=== PATIENT | female | born 2005 | race Caucasian/White ===

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

== ENCOUNTER 2023-04-19 10:15 | Emergency (ER) | payer OTHER, SELFPAY ==
[2023-04-19 11:06] VITALS: BP 109/69; PULSE 85; RESP 16; TEMP 36.3; O2SAT 99; BMI 24.0
--- NOTE | 2023-04-19 13:25 | ED_ITS ---
HPI - Nausea/Vomiting/Diarrhea General Date Seen: 04/19/23 Chief complaint: Nausea/Vomiting Stated complaint: nausea Time Seen by Provider: 04/19/23 12:27 Source: patient Mode of arrival: ambulatory Limitations: no limitations History of Present Illness HPI Narrative: Patient is an 16-year-old female with no pertinent medical problems presenting to the emergency department for nausea, vomiting, diarrhea. She states symptoms have been going on for the past 2 days. She recalls to [facility] says she has been around sick contacts was not know what any of them have had. She states she has vomited sometimes has lost count. Has not ate or drink anything since yesterday and says is only slight amount yesterday. Denies fevers or chills. States she has been having watery diarrhea the past 2 days also. No dysuria or polyuria. States he has a crackling sensation in her umbilicus region that does not radiate. She had a cholecystectomy but still has her appendix. Denies chest pain, shortness of breath, lightheadedness, dizziness. She does feel fatigued. She has an implantable IUD. Related Data Home Medications Medication Instructions Recorded Confirmed Maria Guadalupe 1 tab PO DAILY 05/10/22 04/19/23 Cymbalta 80 mg PO DAILY 05/10/22 04/19/23 Strattera 80 mg PO DAILY 05/10/22 04/19/23 Allergies Allergy/AdvReac Type Severity Reaction Status Date / Time Penicillins AdvReac felt sleepy Verified 04/19/23 11:05 Review of Systems Status of ROS: Reports: 10 or more systems reviewed and unremarkable except as noted in History and below [facility] Social History Smoking Status: Never smoker How often do you have a drink containing alcohol: 2-4 times a month AUDIT-C Alcohol total score: 2 Non-prescribed substance use: marijuana (any form) Exam Narrative: Exam Narrative: Const: Well-nourished, Well-developed, in mild distress Eyes: PERRL, no conjunctival injection, and symmetrical lids HENT: Atraumatic external nose and ears. Moist mucous membranes. Neck: Symmetric, trachea midline, No thyromegaly. CVS: RRR, No murmurs or gallops. Peripheral pulses 2+ and equal in all extremities RESP: Unlabored respiratory effort. Clear to auscultation bilaterally. GI: Mild umbilical tenderness, Nondistended, No rebound or guarding. MSK:Extremities w/o deformity, Normal Active ROM Skin: Warm, Dry. No rashes or lesions. Neuro: Normal Muscle tone, No focal neurological deficits. Psych: Awake, Alert, & Oriented x3. Appropriate mood and affect. Const: Vital Signs, click to edit/add: Vital Signs - 24 hr 04/19/23 11:06 Temperature 97.4 F L Pulse Rate [Pulse Oximeter] 85 Respiratory Rate 16 Blood Pressure [Ri ght Upper Arm] 109/69 Pulse Oximetry 99 Oxygen Delivery Me thod Room Air Course Vital Signs Vital signs: Initial Vital Signs Temperature 97.4 F L 04/19/23 11:06 Temperature Source Temporal Artery Scan 04/19/23 11:06 Pulse Rate 85 04/19/23 11:06 Respiratory Rate 16 04/19/23 11:06 Blood Pressure 109/69 04/19/23 11:06 Blood Pressure Mean 82 04/19/23 11:06 Pulse Oximetry 99 04/19/23 11:06 Oxygen Delivery Method Room Air 04/19/23 11:06 Vital Signs Temperature 97.4 F L 04/19/23 11:06 Pulse Rate 85 04/19/23 11:06 Respiratory Rate 16 04/19/23 11:06 Blood Pressure 109/69 04/19/23 11:06 Pulse Oximetry 99 04/19/23 11:06 Oxygen Delivery Method Room Air 04/19/23 11:06 Temperature 97.4 F L 04/19/23 11:06 Pulse Rate 85 04/19/23 11:06 Respiratory Rate 16 04/19/23 11:06 Blood Pressure 109/69 04/19/23 11:06 Pulse Oximetry 99 04/19/23 11:06 Oxygen Delivery Method Room Air 04/19/23 11:06 MDM - Nausea/Vomiting/Diarrhea MDM Narrative Medical decision making narrative: Patient is 17 year female 2 days of nausea, vomiting, diarrhea. States she has been around sick contacts was not done within once been diagnosed with. Says she has vomited lot and has had watery diarrhea. Denies fevers. Does not have a gallbladder versus appendix. Is having some cramping sensation in her umbilical region. Right now appendicitis is possible as the pain can start in the umbilical region but has been 2 days and has not radiated. We will order lab work on her a CBC, CMP, lipase, urinalysis, urine test, COVID/flu. BMP returned showing a white count of 4.2. Her symptoms resolved with the Toradol and Zofran. At this time I believe appendicitis is unlikely and not believe is necessary to put her to a CT scan. CMP and lipase are also within normal limits unlikely to be pancreatitis or liver disease. Most likely symptoms are related to a viral gastroenteritis. She was discharged home with Zofran. She is agreeable to this plan Lab Data Labs: Lab Results 04/19/23 04/19/23 Range/Units 13:37 13:37 WBC 4.21 L (4.50-11.00) K/uL RBC 5.03 (4.00-5.20) m/uL Hgb 15.1 (12.0-16.0) gm/dL Hct 43.6 (33.0-51.0) % MCV 87 (80-100) fL MCH 30 (26-34) pg MCHC 35 (32-36) gm/dL RDW Coeff of Carlos Alberto 11.6 (11.5-15.5) % Plt Count 291 (140-440) K/uL Neut % (Auto) 47.5 (42.0-72.0) % Lymph % (Auto) 38.7 (20-44) % Mason % (Auto) 10.7 (0.0-11.0) % Eos % (Auto) 1.4 (0.0-7.0) % Baso % (Auto) 1.0 (0.0-3.0) % Neut # (Auto) 2.00 (1.7-7.0) K/uL Lymph # (Auto) 1.60 (0.90-2.90) K/uL Mason # (Auto) 0.50 (0.00-0.90) K/UL Eos # (Auto) 0.10 (0.00-0.50) K/uL Baso # (Auto) 0.00 (0.00-0.30) K/uL Abs Immat Gran (auto) 0.00 (0.00-0.30) K/uL Imm/Tot Granulo (auto) 0.7 % Sodium 139 (135-149) mmol/L Potassium 3.9 (3.6-5.1) mmol/L Chloride 104 (96-114) mmol/L Carbon Dioxide 26 (20-32) mmol/L Anion Gap 9 (7-15) mEq/L BUN 10 (5-24) mg/dL Creatinine 0.6 (0.6-1.2) mg/dL Estimated Creat Clear 130.23 Estimated GFR 133 ml/min Glucose 87 (60-115) mg/dL Calcium 9.5 (8.7-10.8) mg/dL Magnesium 2.1 Cancelled (1.5-2.6) mg/dL Total Bilirubin 0.6 (0.1-1.5) mg/dL AST 33 (12-35) U/L ALT 19 (4-35) U/L Alkaline Phosphatase 71 (40-150) U/L Troponin I < 0.01 L (0.01-0.04) ng/mL Total Protein 7.7 (6.0-8.3) g/dL Albumin 4.7 (3.3-5.0) g/dL Lipase 67 (23-300) U/L SARS-CoV-2 (PCR) Negative SARS-CoV-2 (Negative) Influenza Type A (PCR) Negative PCR FLU A (Negative) Influenza Type B (PCR) Negative PCR FLU B (Negative) Discharge Plan Discharge Clinical Impression: Gastroenteritis Patient Disposition: Home, Self-Care Condition: Improved Instructions: Gastroenteritis (ED) Additional Instructions: It appears as if he of a viral GI infection. Symptoms are go away on their own. Take the Zofran as needed for nausea. Prescriptions: No Action Cymbalta 80 mg PO DAILY Strattera 80 mg PO DAILY Maria Guadalupe 1 tab PO DAILY Follow Up/Referrals: Provider,Not a Local [Primary Care Provider] - Stand Alone Forms: [employer]IFOTEC[employer] Info Instructions
[2023-04-19 13:48] LABS: Eosinophils Percent Auto 1.4 % (0.0-7.0); Hematocrit 43.6 % (33.0-51.0); Hemoglobin* 15.1 gm/dL (12.0-16.0); Immature Granulocytes Pct Auto 0.7 %; Lymphocytes Percent Auto 38.7 % (20-44); Mean Corpuscular HGB Conc 35 gm/dL (32-36); Mean Corpuscular Hemoglobin 30 pg (26-34); Mean Corpuscular Volume 87 fL (80-100); Monocytes Percent Auto 10.7 % (0.0-11.0); Neutrophils Percent Auto 47.5 % (42.0-72.0); Platelet Count* 291 K/uL (140-440); RDW Coefficient of Variation % 11.6 % (11.5-15.5); Red Blood Count 5.03 m/uL (4.00-5.20); White Blood Count* 4.21 K/uL (4.50-11.00)
[2023-04-19 13:50] LABS: Slide Review Reflex No
--- OUTSIDE RECORDS SUMMARY | 2023-04-19 13:50 | XMS_ITS | Patient Health Record ---
Author Name Unknown Organization [facility] Address [address] [place] [id number] Care Team Providers Care Lens Grinder Name Role Phone Sofi Hauser Primary Care Provider Shara Reed Unavailable [phone] User, Clinician Unavailable [phone] Valerie Hood Unavailable [phone] ALLERGIES Allergen (clinical drug ingredient) Drug/Non Drug Allergy documented on EMR Reaction Allergy Type Onset Date Status metoclopramide Reglan Unknown Drug Allergy Ac tive Penicillin foggy head Drug Allergy Activ e RESULTS Component Value Reference Range Notes Ferritin Reviewed date:10/10/2022 10:04:46 AM Interpretation:Normal Performing Lab: Notes/Report: FERRITIN 29 6-175 ng/mL PERFORMED BY: [facility], [address] [address] Feura Bush [id number],[facility] [id number] . Hemoglobin (HGB) Reviewed date:10/09/2022 03:58:50 PM Interpretation:Normal Performing Lab: Notes/Report: Testing performed at: [address] [address] Hemoglobin 14.1 12.0-17.5 g/dL Kay-Rice Virus Antibody IgG EBV Reviewed date:05/01/2022 01:20:46 PM Interpretation:past infection Performing Lab: Notes/Report: past infection EBVCAG INSTRUMENT VALUE EBV CAPSID ANTIBODY IGG EBVNA1 INSTRUMENT VALUE EBV NUCLEAR ANTIGEN (EBNA) ANTIBODY IGG EBVEAD INSTRUMENT VALUE EBV ANTIBODY TO EARLY ANTIGE N IGG KAY RICE VIRUS ANTIBODY IGG REASON FOR REFERRAL Reason Evaluate and treat, concussion sustained at college, ongoing symptoms Diagnosis 1 Concussion without l oss of consciousness, sequela (S06.0X0S) Referral Organization [facility] Referring Provider First Name Sofi Referring Provider Last Name Murtaza Referring Provider Speciality Pediatrics Referred Provider [facility] Referred Provider Specialty Physical [facility] Notes FrandyLoreta 06/30/20 22 12:52:25 PM > Faxed referral and notes to [facility] [place] [phone] Referral Priority Routine MEDICATIONS Medication SIG (Take, Route, Frequency, Duration) Notes Start Date End Date Status Ferrous Sulfate TAKE 1 TABLET BY ZORA TH EVERY DAY for 30 Not-Taking Imitrex 50 MG 1 tablet as needed f or migraine; may repeat in 2 hours if no relief; maximum daily dose of 200 mg; do not use more than 4x in one month Orally Twice a day for 30 days 03/07/2022 Active DULoxetine HCl Activ e ProAir RespiClick 108 (90 Base) MCG/ACT 2 puffs as needed Inhalation every 4 hrs 11/07/2016 Active Albuterol Sulfate (2.5 MG/3ML) 0.083% 3 ml Inhalation Every 4 to 6 hours as needed for 14 days Not-Taking Strattera Active IMMUNIZATIONS Vaccine Route Administration Date Status Comme nts Comirnaty-PFR t-s 30mcg Unknown 03/04/2022 Administered COVID-19 Pfizer (Comirnaty-PFR) Unknown 10/08/2020 Administered COVID-19 Pfizer (Comirnaty-PFR) Unknown 02/25/2021 Administered DTaP (under 7yrs) Unknown 2003 Administered DTaP (under 7yrs) Unknown 2003 Administered DTaP (under 7yrs) Unknown 2003 Administered DTaP (under 7yrs) Unknown 12/23/2004 Administered DTaP (under 7yrs) Unknown 11/17/2009 Administered Hep A (1-18 yrs) IM Intramuscular 10/04/2015 Administered Hep A (1-18 yrs) IM Intramuscular 10/13/2016 Administered Hep B (0-19yrs) Unknown 2003 Administered Hep B (0-19yrs) Unknown 2003 Administered Hep B (0-19yrs) Unknown 03/28/2004 Administered HIB Unknown 2003 Administered HIB Unknown 2003 Administered HIB Unknown 2003 Administered HPV9* IM Intramuscular 01/30/2022 Administered Influenza (3yrs+) Unknown 07/16/2009 Administered Influenza (3yrs+) Unknown 05/25/2019 Administered Influenza (6-35 months) Unknown 05/30/2006 Administered Influenza P-Free* IM Intramuscular 04/30/2013 Administered Influenza P-Free* IM Intramuscular 07/31/2017 Administered Influenza P-Free* Unknown 05/02/2018 Administered Influenza P-Free* Unknown 05/03/2018 Administered Influenza P-Free* Unknown 05/30/2020 Administered Influenza P-Free* IM Intramuscular 06/13/2021 Administered IPV Unknown 2003 Administered IPV Unknown 2003 Administered IPV Unknown 2003 Administered IPV Unknown 07/14/[address] Menactra IM Intramuscular 10/04/2015 Administered Menactra IM Intramuscular 06/13/2021 Administered MMR Unknown 07/04/2004 Administered MMR Unknown 07/14/[address] Prevnar (PCV 7) Unknown 2003 Administered Prevnar (PCV 7) Unknown 2003 Administered Prevnar (PCV 7) Unknown 03/28/2004 Administered Prevnar (PCV 7) Unknown 07/04/2004 Administered Tdap IM Intramuscular 07/13/2014 Administered Varicella Unknown 07/04/2004 Administered Varicella Unknown 07/14/[address] SOCIAL HISTORY Sex Assigned At : Social History Observation Description Sex Assigned At Unknown PROBLEMS Problem Type ICD Code Onset Dates Problem Status W/U Status Risk SNOMED Code Notes Problem Fatigue (R53.83) Active confirmed Problem Anxiety (F41.9) Active confirmed Problem ADHD (attention deficit hyperactivity disorder), combined type (F90.2) Active confirmed 63429140 Problem Low hemoglobin (D64.9) Active confirmed Problem Recurrent abdominal pain (R10.9) Active confirmed Problem Migraine headache (G43.909) Active confirmed Migraine (60385164) Problem Low ferritin (R79.0) Active confirmed 499173314 Problem Recurrent headache (R51) Inactive confirmed 27922745 Problem Vaccination not carried out because of caregiver refusal (Z28.82) Active confirmed [id number] refusal signed: 07/13/14 Problem Panic attack (F41.0) Active confirmed 068515064 Problem Mild persistent asthma (J45.30) Active confirmed Mild persistent asthma (823809742) VITAL SIGNS Temperature 98.1 degrees Fahrenheit 05/01/2022 Blood pressure diastolic 68 mm Hg 10/09/2022 BMI Percentile 73.63 % 10/09/2022 Height 64 in 10/09/2022 Blood pressure systolic 112 mm Hg 10/09/2022 Weight 140.0 lbs 10/09/2022 BMI 24.03 kg/m2 10/09/2022 Encounters Encounter Location Date Provider Diagnosis [facility] [address] [phone] 05/01/2022 Valerie Hood Recurrent abdominal pain R10.9 [facility] [address] [address] 10/09/2022 Valerie Hood Encounter for general adult medical examination without abnormal findings Z00.00 ; Low hemoglobin D64.9 ; Mild persistent asthma J45.30 and Concussion S06.0X9A [facility] [address] [place] [phone] 04/25/2022 Sofi Hauser [facility] [address] [id number] 04/25/2022 Sofi Hauser Fatigue R53.83 [facility] [address] [place] [phone] 05/01/2022 Sofi Hauser [facility] [address] [address] 06/16/2022 Sofi Hauser [facility] [address] [place] [address] [id number] 06/29/2022 Sofi Hauser Concussion without loss of consciousness, sequela S06.0X0S [facility] [address] [place] [phone] 08/14/2022 Sofi Hauser [facility] [address] [phone] 10/09/2022 Clinician User [facility] [address] [address] 10/09/2022 Clinician User [facility] [address] [address] 10/09/2022 Clinician User [facility] [address] [place] [address] [phone] 11/08/2022 Sofi Hauser ASSESSMENTS Encounter Date Diagnosis Assessment Notes Treatment Notes Treatment Clinical Notes 04/25/2022 Fatigue (ICD-10 - R53.83) 05/01/2022 Recurrent abdominal pain (ICD-10 - R10.9) 1. Continue with supplements 2. TUMS if that will settle down discomfort 3. IF stomach pains continue can refer back to GI 4. 35 minutes of time spent with family 06/29/2022 Concussion without loss of consciousness, sequela (ICD-10 - S06.0X0S) 10/09/2022 Low hemoglobin (ICD-10 - D64.9) 10/09/2022 Encounter for general adult medical examination without abnormal findings (ICD-10 - Z00.00) 10/09/2022 Mild persistent asthma (ICD-10 - J45.30) 10/09/2022 Concussion (ICD-10 - S06.0X9A) 10/09/2022 Other [place] [employer] patient: 18 to 21 year material was published PLAN OF TREATMENT No Information Insurance Providers Payer Name Payer Address Payer Phone Subscriber Number Group Number Insured Name Patient Relationship to Insured Coverage Start Date Coverage End Date [employer] [address] [address] [place] [address] [id number] Self - patient is the insured MEDICAL (GENERAL) HISTORY Medical History History ICD Code Csect @ term 2 distress, BW 6#6oz 12.11.03 Bronchiolitis-hosp x1 4mos, mult episode s nebuse before age 1-rarely since speech delay, social skills 06, au tism spectrum D/O 08.08.07 Mild int asthma ..07 autism spectrum D/O, Pb(-) c eliac (-) 08.08.06, food al panal neg 1.24.07, dairy, EWS-oppositional defiant D/O 4.7.07, school speech 'wnl' 5.29.07, social eval 5.29.07, PDD-NOS 9.25.08 ([facility] ADHD 2.11.10 (ped. consultation speciali sts) OCD 4.5.12 High IQ ([facility]) Exercise and viral induced asthma Immune to polio, varicella and MMR via l ab testin07/14/[address] Corbett, Pediatric In te[facility]ative Medicine. [facility] - Asthma 10/24/2016: Dr Guevara, star pat on Dulera [facility] - Chest wall pain 03/29/2017: EKG , CXR and labs normal. [facility] - Migraines 05/17: Imitrex rx given, f/u 6 months. Brain MRI normal 05/01 [facility]- Mild Persistent Asthma Without Complication, Bordetella Pertussis 07/31/2017: started on theophylline to reduce cough [facility] - Asthma, Bordetella Pe rtusis 09/13/2017: symbicort. Last seen 09/05, f/u in 8-10 months [facility] Ovarian Cyst, Nausea 12/16/2018 Recurrent nausea and vomiting s/p choles ystectomy 04/2020 [facility] 01/27/2021: Lynsey rodriguez opinion, likely functional nausea/vomiting. Stop cyproheptadine, start ondansetron, gastric emptying study planned. F/u 2 months Surgical History Surgery Date(Month/Year) laparoscopic cholecystectomy 04/21/20 upper endoscopy and biopsies 03/04 Hospitalization History Reason Date(Month/Year) none
[2023-04-19] MEDS: KETOROLAC 15 MG/ML inj IVP (13:52)
[2023-04-19] MEDS: LACTATED RINGERS 1000 ML 1,000 ML IV (13:53)
[2023-04-19] MEDS: ONDANSETRON 2 MG/ML inj 4 MG IVP (13:53)
[2023-04-19 14:42] LABS: PCR FLU A Negative PCR FLU A (Negative); PCR FLU B Negative PCR FLU B (Negative); SARS PCR* Negative SARS-CoV-2 (Negative)
[2023-04-19 14:51] LABS: Albumin* 4.7 g/dL (3.3-5.0); Chloride* 104 mmol/L (96-114)
[2023-04-19 14:52] LABS: Potassium* 3.9 mmol/L (3.6-5.1); Sodium* 139 mmol/L (135-149)
[2023-04-19 14:54] LABS: Alkaline Phosphatase* 71 U/L (40-150); Anion Gap 9 mEq/L (7-15); Aspartate Amino Transferase* 33 U/L (12-35); Bilirubin Total* 0.6 mg/dL (0.1-1.5); Blood Urea Nitrogen* 10 mg/dL (5-24); Carbon Dioxide* 26 mmol/L (20-32); Creatinine* 0.6 mg/dL (0.6-1.2); Est. Creatinine Clearance* 130.23; Estimated Glomerular Filt Rate 133 ml/min; Glucose* 87 mg/dL (60-115); Lipase* 67 U/L (23-300); Total Protein* 7.7 g/dL (6.0-8.3)
[2023-04-19 14:55] LABS: Alanine Aminotransferase* 19 U/L (4-35); Calcium* 9.5 mg/dL (8.7-10.8); Magnesium* 2.1 mg/dL (1.5-2.6)
[2023-04-19 15:10] LABS: Troponin I* < 0.01 ng/mL (0.01-0.04)
[2023-04-19 15:50] LABS: Ur HCG Qualitative* Negative (Negative)
[2023-04-19 15:54] LABS: Appearance Urine Cloudy (Clear); Bilirubin Urine 1+ (Negative); Blood Urine Negative (Negative); Color Urine Orange (Yellow); Glucose Urine Negative (Negative); Ketones Urine Negative (Negative); Leukocyte Esterase Urine Negative (Negative); Nitrite Urine Negative (Negative); Protein Urine Trace (Negative); Specific Gravity Urine >= 1.030 (1.000-1.030); Urobilinogen Urine 0.2 (0.2-1.0); pH Urine 6.5 (5.0-8.5)
[2023-04-19 16:05] LABS: Bacteria Urine Moderate; Mucus Urine Many; RBC Urine 0-2 (0-2); Squamous Epithelial Cell Urine Many (None-Few)
== END 2023-04-19 16:08 | disposition home or self-care (01) ==
PROVIDERS: Emergency Provider Student in an Organized Health Care Education/Training Program
DX: K52.9 Noninfective gastroenteritis and colitis, unspecified (principal)
CPT/HCPCS: 36415; 80053; 81001; 81025; 83690; 83735; 84484; 85025; 87086; 87631; 96374; 96375; 99283; J1885; J2405; J7120

== ENCOUNTER 2024-05-29 14:19 | Emergency (ER) | payer OTHER, SELFPAY ==
[2024-05-29 14:32] VITALS: BP 106/70; PULSE 99; RESP 16; TEMP 36.5; O2SAT 95; BMI 24.0
--- NOTE | 2024-05-29 15:13 | CRLHL7_ITS ---
For Patients: As a result of the Century Cures Act, medical imaging exams and procedure reports are released immediately into your electronic medical record. You may view this report before your referring provider. If you have questions, please contact your health care provider. INDICATION: ABD PAIN, NAUSEA, VOMITING, DIARRHEA TECHNIQUE: CT of the abdomen and pelvis was obtained with 69 mL of Isovue 370 intravenous contrast. Please note that all CT scans at this facility use dose modulation, iterative reconstruction, and/or weight-based dosing when appropriate to reduce radiation dose to as low as reasonably achievable. COMPARISON: None. FINDINGS: Lower thorax: Normal. Liver and biliary tree: Normal. Gallbladder: Status post cholecystectomy. Spleen: Normal. Pancreas: Normal. Adrenal glands: Normal. Kidneys and ureters: No hydronephrosis. No obstructing renal calculi. Gastrointestinal tract: Normal appendix. No evidence of bowel obstruction. Peritoneal cavity: Nonspecific trace free fluid within the pelvis. Bladder: Normal. Pelvic organs: Intrauterine device is seen within the uterus. 3.0 centimeter right adnexal cystic lesion is favored to be physiologic (2/119). Vasculature: Normal. Lymph nodes: Normal. Abdominal wall: Normal. Musculoskeletal: Normal. IMPRESSION: No acute intra-abdominal abnormality. Please note that all CT scans at this facility use dose modulation, iterative reconstruction, and/or weight-based dosing when appropriate to reduce radiation dose to as low as reasonably achievable. Dictated by John Paul Lai MD @ 05/29/2024 4:00:34 PM (Electronically Signed)
--- NOTE | 2024-05-29 15:16 | ED_ITS ---
HPI - Nausea/Vomiting/Diarrhea General Chief complaint: Nausea/Vomiting Stated complaint: vomiting Time Seen by Provider: 05/29/24 14:24 History of Present Illness HPI Narrative: This 18-year-old female comes in with her mother because of recurrent nausea, vomiting, diarrhea. She states that this is been going on for the past 4 days. She had similar symptoms about 6 weeks ago and had labs in workup done here that did not include imaging. At that time it seemed that she had a viral gastroenteritis. She improved with medicines given at that time and has done well until these past 4 days. She states that she has been maintaining a gluten free diet for the past 4 years but now when she is at school in a dormitory she is uncertain how truly gluten free the foods are despite labeled as such. She has had her gallbladder removed. She does not report any fevers or blood in the toilet. She did have testing for celiac or gluten sensitivity and the results were negative however she was not eating a gluten diet at the time and the results then would not be accurate and LEs she had been taking such foods. Related Data Home Medications ?Medication ?Instructions ?Recorded ?Confirmed Maria Guadalupe 1 tab PO DAILY 05/10/22 05/29/24 Cymbalta 80 mg PO DAILY 05/10/22 05/29/24 Strattera 80 mg PO DAILY 05/10/22 05/29/24 propranolol 10 mg tablet 10 mg PO BID PRN anxiety 05/29/24 05/29/24 Previous Rx's ?Medication ?Instructions ?Recorded ondansetron HCl 4 mg tablet 4 mg PO Q6H #20 tabs 05/29/24 Allergies Allergy/AdvReac Type Severity Reaction Status Date / Time gluten Allergy Unknown Verified 05/29/24 15:44 Penicillins AdvReac felt sleepy Verified 05/29/24 15:44 Review of Systems Status of ROS: Reports: 10 or more systems reviewed and unremarkable except as noted in History and below Narrative: Constitutional: No fevers, no weight gain or loss. Eyes: No discharge. No vision changes. HENT: No congestion, no sore throat, no ear pain. Cardiovascular: No chest pain, no palpitations. Respiratory: No shortness of breath, no wheezes, no cough. Gastrointestinal: Upper epigastric abdominal pain with vomiting and diarrhea. Genitourinary: No dysuria, no hematuria. Musculoskeletal: Normal range of motion. Skin: No rashes, no pruritis. Neurological: No dizziness, weakness, sensory change, speech change. Endo/Heme/Allergies: No bruising or bleeding. No polydipsia. Pysch: no suicidality, no anxiety, no insomnia. All other systems reviewed and are negative. [facility] Social History Smoking Status: Never smoker How often do you have a drink containing alcohol: 2-4 times a month AUDIT-C Alcohol total score: 2 Non-prescribed substance use: marijuana (any form) Exam Narrative: Exam Narrative: Constitutional: Well-developed, well-nourished, no acute distress. HEENT: Normocephalic, atraumatic. Neck: Normal range of motion. Nontender. Supple. Heart: Regular. No murmurs. Normal rate. Intact distal pulses. Lungs: Clear to auscultation. No chest discomfort. No wheezes, rhonchi, or rales. Abdomen: Normal bowel sounds. Upper epigastric tenderness. No rebound tenderness. Genitalia: Deferred. Back: No midline tenderness. Normal range of motion. Extremities: Normal range of motion. No injury. Skin: Intact. No rash. Warm. No erythema or pallor. Neurologic: No altered sensation. No weakness. Alert and oriented. Psychiatric: No suicidality. No anxiety or depression. No insomnia. Nursing notes and vitals signs are reviewed. Const: Vital Signs, click to edit/add: Vital Signs - 24 hr 05/29/24 14:32 Temperature 97.7 F Pulse Rate [Pulse Oximeter] 99 Respiratory Rate 16 Blood Pressure [Ri ght Upper Arm] 106/70 Pulse Oximetry 95 Oxygen Delivery Me thod Room Air Course Vital Signs Vital signs: Initial Vital Signs Temperature 97.7 F 05/29/24 14:32 Temperature Source Temporal Artery Scan 05/29/24 14:32 Pulse Rate 99 05/29/24 14:32 Respiratory Rate 16 05/29/24 14:32 Blood Pressure 106/70 05/29/24 14:32 Blood Pressure Mean 82 05/29/24 14:32 Blood Pressure Position Sitting 05/29/24 14:32 Pulse Oximetry 95 05/29/24 14:32 Oxygen Delivery Method Room Air 05/29/24 14:32 Vital Signs Temperature 97.7 F 05/29/24 14:32 Pulse Rate 99 05/29/24 14:32 Respiratory Rate 16 05/29/24 14:32 Blood Pressure 106/70 05/29/24 14:32 Pulse Oximetry 95 05/29/24 14:32 Oxygen Delivery Method Room Air 05/29/24 14:32 Temperature 97.7 F 05/29/24 14:32 Pulse Rate 99 05/29/24 14:32 Respiratory Rate 16 05/29/24 14:32 Blood Pressure 106/70 05/29/24 14:32 Pulse Oximetry 95 05/29/24 14:32 Oxygen Delivery Method Room Air 05/29/24 14:32 Medications Administered Medications: Discontinued Medications Generic Name Dose Route Start Last Admin Trade Name Freq PRN Reason Stop Dose Admin Sodium Chloride 500 mls @ 500 mls/hr 05/29/24 15:13 05/29/24 16:29 0.9 % Sodium Chloride 500 Ml IV 05/29/24 16:12 Infused .Q1H ONE Infusion Ondansetron HCl 4 mg 05/29/24 15:13 05/29/24 15:35 Ondansetron 2 Mg/Ml Inj IVP 05/29/24 15:14 4 mg ONCE ONE Administration MDM - Nausea/Vomiting/Diarrhea MDM Narrative Medical decision making narrative: This patient comes in with recurrent vomiting as described above. An IV was established and she did receive 500 mL of normal saline along with 4 mg of Zofran. Labs are acquired and these returned with normal results as does a CT scan of her abdomen and pelvis. The patient feels better after receiving these treatments. She is okay to be discharged home and I did provide a prescription for Zofran. Lab Data Labs: Lab Results 05/29/24 05/29/24 Range/Units 15:25 15:25 WBC 5.98 (4.50-11.00) K/uL RBC 5.24 H (4.00-5.20) m/uL Hgb 15.6 (12.0-16.0) gm/dL Hct 45.3 (33.0-51.0) % MCV 87 (80-100) fL MCH 30 (26-34) pg MCHC 34 (32-36) gm/dL RDW Coeff of Carlos Alberto 11.8 (11.5-15.5) % Plt Count 262 (140-440) K/uL Neut % (Auto) 64.9 (42.0-72.0) % Lymph % (Auto) 24.7 (20-44) % [place] % (Auto) 9.2 (0.0-11.0) % Eos % (Auto) 0.7 (0.0-7.0) % Baso % (Auto) 0.5 (0.0-3.0) % Neut # (Auto) 3.88 (1.7-7.0) K/uL Lymph # (Auto) 1.48 (0.90-2.90) K/uL [place] # (Auto) 0.60 (0.00-0.90) K/UL Eos # (Auto) 0.04 (0.00-0.50) K/uL Baso # (Auto) 0.03 (0.00-0.30) K/uL Abs Immat Gran (auto) 0.00 (0.00-0.30) K/uL Imm/Tot Granulo (auto) 0.0 % ESR 2 (2-20) mm/hr Sodium 137 (135-149) mmol/L Potassium 3.8 (3.6-5.1) mmol/L Chloride 102 (96-114) mmol/L Carbon Dioxide 23 (20-32) mmol/L Anion Gap 12 (7-15) mEq/L BUN 12 (5-24) mg/dL Creatinine 0.6 (0.5-1.5) mg/dL Estimated Creat Clear 129.15 Estimated GFR 132 ml/min Glucose 87 (60-115) mg/dL Calcium 9.9 (8.4-10.6) mg/dL Lipase 59 Cancelled (23-300) U/L Imaging Data CT scan - abdomen: Radiologist's impression: No acute intra-abdominal abnormality. Discharge Plan Discharge Clinical Impression: Vomiting and diarrhea Additional Instructions: Take medication as needed and indicated. Take fluids in small amounts frequently. Increase diet otherwise as tolerated. Follow up with MD return if worsening. Prescriptions: New ondansetron HCl 4 mg tablet 4 mg PO Q6H Qty: 20 1RF No Action Cymbalta 80 mg PO DAILY Strattera 80 mg PO DAILY Maria Guadalupe 1 tab PO DAILY propranolol 10 mg tablet 10 mg PO BID PRN (Reason: anxiety) Follow Up/Referrals: Provider,Not a Local [Primary Care Provider] - Stand Alone Forms: MyHealth Info Instructions
[2024-05-29] MEDS: ONDANSETRON 2 MG/ML inj 4 MG IVP (15:35)
[2024-05-29] MEDS: 0.9 % SODIUM CHLORIDE 500 ML 500 ML IV (15:35)
[2024-05-29 15:38] LABS: Basophils Absolute Auto 0.03 K/uL (0.00-0.30); Basophils Percent Auto 0.5 % (0.0-3.0); Eosinophils Absolute Auto 0.04 K/uL (0.00-0.50); Eosinophils Percent Auto 0.7 % (0.0-7.0); Hematocrit 45.3 % (33.0-51.0); Hemoglobin* 15.6 gm/dL (12.0-16.0); Lymphocytes Absolute Auto 1.48 K/uL (0.90-2.90); Lymphocytes Percent Auto 24.7 % (20-44); Mean Corpuscular HGB Conc 34 gm/dL (32-36); Mean Corpuscular Hemoglobin 30 pg (26-34); Mean Corpuscular Volume 87 fL (80-100); Monocytes Percent Auto 9.2 % (0.0-11.0); Neutrophils Absolute Auto 3.88 K/uL (1.7-7.0); Neutrophils Percent Auto 64.9 % (42.0-72.0); Platelet Count* 262 K/uL (140-440); RDW Coefficient of Variation % 11.8 % (11.5-15.5); Red Blood Count 5.24 m/uL (4.00-5.20); White Blood Count* 5.98 K/uL (4.50-11.00)
[2024-05-29 16:08] LABS: Slide Review Reflex No
[2024-05-29 16:19] LABS: Chloride* 102 mmol/L (96-114); Potassium* 3.8 mmol/L (3.6-5.1); Sodium* 137 mmol/L (135-149)
[2024-05-29 16:21] LABS: Creatinine* 0.6 mg/dL (0.5-1.5); Est. Creatinine Clearance* 129.15; Estimated Glomerular Filt Rate 132 ml/min; Lipase* 59 U/L (23-300)
[2024-05-29 16:22] LABS: Blood Urea Nitrogen* 12 mg/dL (5-24); Calcium* 9.9 mg/dL (8.4-10.6); Carbon Dioxide* 23 mmol/L (20-32); Glucose* 87 mg/dL (60-115)
[2024-05-29 16:23] LABS: Anion Gap 12 mEq/L (7-15)
[2024-05-29 17:42] LABS: Erythrocyte SedimentationRate* 2 mm/hr (2-20)
== END 2024-05-29 18:00 | disposition home or self-care (01) ==
PROVIDERS: Emergency Provider Emergency Medicine Emergency Medical Services
DX: R11.10 Vomiting, unspecified (principal); R19.7 Diarrhea, unspecified
CPT/HCPCS: 36415; 74177; 80048; 83690; 85025; 85651; 96374; 99283; 99284; J2405; J7030; Q9967